=== PATIENT | male | born 1950 | race Asian ===

== ENCOUNTER → 2016-08-23 | Outpatient (CLI) | payer MEDICARE, OTHER ==
[~2016-08-23] MED LIST: ASPI-1093 PO; ATEN50TA PO; ATOR20TA86 PO; FOLI-74 PO; LOSA50TA37 PO; SILD25 PO; SITA1TAB2 PO; TAMS0.4C32 PO
== END | disposition home or self-care (01) ==
LOC: RADPV 11:20
PROVIDERS: ATTEND Internal Medicine
DX: J34.89 Other specified disorders of nose and nasal sinuses (principal); R09.81 Nasal congestion
CPT/HCPCS: 70220; 71020

== ENCOUNTER → 2022-03-07 | Outpatient (CLI) | payer MEDICARE, OTHER ==
[~2022-03-07] MED LIST changes: -ASPI-1093 PO; +ASPI-1444 PO; +ATEN-72 PO; -ATEN50TA PO; +LOSA-382 PO; -LOSA50TA37 PO; +TAMS-13 PO; -TAMS0.4C32 PO
== END | disposition home or self-care (01) ==
LOC: LABPV 10:44
PROVIDERS: ATTEND Internal Medicine
DX: M19.012 Primary osteoarthritis, left shoulder (principal); M25.512 Pain in left shoulder
CPT/HCPCS: 73030-TC